=== PATIENT | female | born 1965 | race Caucasian/White ===

== ENCOUNTER 2019-03-06 09:45 | Inpatient (IN) | payer OTHER ==
[~2019-03-06] VITALS: Ht 165.1 cm; Wt 69.9 kg
[2019-03-06] MEDS ORDERED: METFORMIN HCL1000 M2 PO (14:34)
[2019-03-06] MEDS ORDERED: LOSARTAN POTASS50 MG PO (14:35)
[2019-03-06] MEDS ORDERED: NEURONTIN600 MG PO (14:35)
[2019-03-06] MEDS ORDERED: CARVEDILOL25 MG PO (14:35)
[2019-03-06] MEDS ORDERED: FENOFIBRATE160 MG PO (14:35)
[2019-03-06] MEDS ORDERED: PROTONIX40 MG PO (14:35)
[2019-03-06] MEDS ORDERED: ZOCOR20 MG PO (14:36)
[2019-03-06] MEDS ORDERED: ALENDRONATE SOD35 MG PO (14:37)
[2019-03-06] MEDS ORDERED: OCUVITE EYE HE1 EACH PO (14:37)
[2019-03-06] MEDS ORDERED: B-12500 MCG PO (14:38)
[2019-03-14] MEDS ORDERED: TRAM1TAB98 PO (07:45)
[2019-03-14] MEDS ORDERED: INTESTINEX680 M1 PO (07:46)
== END 2019-03-14 08:50 | disposition home or self-care (01) | DRG 330 ==
LOC: O/R 03-11 06:15 → SURG 03-11 06:15 → SURH 03-11 09:45 → SURG 03-11 13:33
PROVIDERS: ADMIT Surgery
PROC: 07TB4ZZ Resection of Mesenteric Lymphatic, Percutaneous Endoscopic Approach (ICD-10-PCS; 2019-03-11)
PROC: 0DTH4ZZ Resection of Cecum, Percutaneous Endoscopic Approach (ICD-10-PCS; principal; 2019-03-11 11:30)
DX: C18.1 Malignant neoplasm of appendix (principal); C18.0 Malignant neoplasm of cecum; D62 Acute posthemorrhagic anemia; R59.0 Localized enlarged lymph nodes; N73.6 Female pelvic peritoneal adhesions (postinfective); E11.9 Type 2 diabetes mellitus without complications; I10 Essential (primary) hypertension; E78.00 Pure hypercholesterolemia, unspecified

== ENCOUNTER 2019-12-10 08:45 | Day surgery (SDC) | payer OTHER ==
[~2019-12-10 08:45] MED LIST: ALENDRONATE SOD35 MG PO; B-12500 MCG PO; CARVEDILOL25 MG PO; FENOFIBRATE160 MG PO; INTESTINEX680 M1 PO; LOSARTAN POTASS50 MG PO; METFORMIN HCL1000 M2 PO; NEURONTIN600 MG PO; OCUVITE EYE HE1 EACH PO; PROTONIX40 MG PO; TRAM1TAB98 PO; ZOCOR20 MG PO
== END 2019-12-10 13:20 | disposition home or self-care (01) ==
LOC: AMB-ENDOS 08:45 → CIR.AMB 09:15 → AMB-ENDOS 09:15
DX: K62.89 Other specified diseases of anus and rectum (principal); K64.8 Other hemorrhoids; K38.8 Other specified diseases of appendix

== ENCOUNTER 2021-03-02 09:36 | Day surgery (SDC) | payer OTHER | END 2021-03-02 13:25 | disposition home or self-care (01) | LOC: AMB-ENDOS 09:36 | PROVIDERS: ATTEND Surgery | DX: K62.89 Other specified diseases of anus and rectum (principal); K64.8 Other hemorrhoids; Z20.822 Contact with and (suspected) exposure to COVID-19 ==